=== PATIENT | female | born 1950 | race Caucasian/White ===

== ENCOUNTER 2020-05-02 22:20 | Emergency (ER) | payer SELFPAY ==
[2020-05-02] MEDS ORDERED: Ketorolac 30 MG/ML SDV IM ONE (22:33)
[2020-05-02] MEDS ORDERED: traMADol 50 MG Tab PO ONE (22:33)
--- NOTE | 2020-05-02 23:19 | EDM.PDOC ---
ED HPI GENERAL MEDICAL PROBLEM - General Chief Complaint: General Stated Complaint: PAIN IN R RIBS Time Seen by Provider: 05/02/20 22:25 Source of Information: Reports: Patient History Limitations: Reports: No Limitations - History of Present Illness INITIAL COMMENTS - FREE TEXT/NARRATIVE: Patient presented to the ED because of rt rib pain. It started 2 weeks ago when she was carrying and pulling furnitures. The pain is sharp 7/10 and is worse with movements. She OTC tylenol with mild relief. - Related Data Allergies Allergy/AdvReac Type Severity Reaction Status Date / Time No Known Allergies Allergy Verified 02/23/13 11:42 Home Meds: Home Meds Meloxicam 15 mg PO DAILY 02/17/15 [History] SUMAtriptan succinate [Imitrex] 100 mg PO DAILY PRN 02/17/15 [History] amLODIPine Besylate [Amlodipine Besylate] 10 mg PO DAILY 02/17/15 [History] traMADol [Ultram ER] 200 mg PO DAILY 02/17/15 [History] Cyclobenzaprine [Flexeril] 5 mg PO TID #15 tab 05/02/20 [Rx] Naproxen 500 mg PO BID #15 tablet 05/02/20 [Rx] traMADol [Ultram] 100 mg PO Q8H PRN #15 tab 05/02/20 [Rx] Past Medical History Cardiovascular History: Reports: Heart Murmur, High Cholesterol, Hypertension Other Musculoskeletal History: Chronic pain. Other Psychiatric History: Stress. - Past Surgical History Female Surgical History: Reports: Hysterectomy Musculoskeletal Surgical History: Reports: Knee Replacement, Other (See Below) Other Musculoskeletal Surgeries/Procedures:: States total left knee replacement. ED ROS GENERAL - Review of Systems Review Of Systems: See Below Constitutional: Reports: No Symptoms HEENT: Reports: No Symptoms Respiratory: Reports: No Symptoms Cardiovascular: Reports: No Symptoms Endocrine: Reports: No Symptoms GI/Abdominal: Reports: No Symptoms : Reports: No Symptoms Musculoskeletal: Reports: Other (rib pain) Skin: Reports: No Symptoms Neurological: Reports: No Symptoms Psychiatric: Reports: No Symptoms ED EXAM, GENERAL - Physical Exam Exam: See Below Exam Limited By: No Limitations General Appearance: Alert, No Apparent Distress Ears: Normal External Exam, Normal Canal Nose: Normal Inspection, Normal Mucosa, No Blood Throat/Mouth: Normal Inspection, Normal Lips, Normal Teeth Head: Atraumatic, Normocephalic Neck: Normal Inspection, Supple, Non-Tender Respiratory/Chest: No Respiratory Distress, Lungs Clear, Normal Breath Sounds, Other (tenderness rt rib and rt chest) Cardiovascular: Normal Peripheral Pulses, Regular Rate, Rhythm, No Edema GI/Abdominal: Normal Bowel Sounds, Soft, Non-Tender Back Exam: Normal Inspection, Full Range of Motion Extremities: Normal Inspection, Normal Range of Motion, Non-Tender Neurological: Alert, Oriented, CN II-XII Intact Course - Vital Signs Text/Narrative:: CXR and Rib xray was discussed with patient Toradol 30 mg IM Tramadol 100 mg PO x1 Last Recorded V/S: Last Vital Signs Temp 36.7 C 05/02/20 22:20 Pulse Resp BP Pulse Ox - Orders/Labs/Meds Orders: Active Orders 24 hr Category Date Time Status EKG Documentation Completion [RC] ASDIRECTED Care 05/02/20 22:39 Active Ribs 2V w Chest Rt [CR] Stat Exams 05/02/20 22:34 Taken EKG 12 Lead [EK] Routine Ther 05/02/20 22:39 Ordered Meds: Medications Discontinued Medications Generic Name Dose Route Start Last Admin Trade Name Freq PRN Reason Stop Dose Admin Ketorolac Tromethamine 30 mg 05/02/20 22:33 05/02/20 22:38 Toradol IM 05/02/20 22:34 30 mg ONETIME ONE Administration Tramadol HCl 100 mg 05/02/20 22:33 05/02/20 22:39 Ultram PO 05/02/20 22:34 100 mg ONETIME ONE Administration Departure - Departure Time of Disposition: 23:30 Disposition: Home, Self-Care 01 Condition: Good Clinical Impression: Rib pain on right side, Chest wall pain - Discharge Information Prescriptions: Cyclobenzaprine [Flexeril] 5 mg PO TID #15 tab Naproxen 500 mg PO BID #15 tablet traMADol [Ultram] 100 mg PO Q8H PRN #15 tab PRN Reason: Pain Referrals: Loretta Gray [employer] [Primary Care Provider] - Additional Instructions: please read discharge instructions on rib pain and chest wall pain take naproxen 500 mg twice daily for 7 days flexeril 5mg with tramadol 100 mg every 8 hours as needed for muscle spasm and pain Follow up as needed Sepsis Event Note (ED) - Evaluation Sepsis Screening Result: No Definite Risk - Focused Exam Vital Signs: Vital Signs Temp 05/02/20 22:20 36.7 C - My Orders Last 24 Hours: My Active Orders 05/02/20 22:34 Ribs 2V w Chest Rt [CR] Stat 05/02/20 22:39 EKG Documentation Completion [RC] ASDIRECTED EKG 12 Lead [EK] Routine - Assessment/Plan Last 24 Hours: My Active Orders 05/02/20 22:34 Ribs 2V w Chest Rt [CR] Stat 05/02/20 22:39 EKG Documentation Completion [RC] ASDIRECTED EKG 12 Lead [EK] Routine
[2020-05-03 01:58] VITALS: PULSE 89
[2020-05-03 01:59] VITALS: BP 166/83
--- NOTE | 2020-05-03 10:20 | CR ---
INDICATION: Right rib pain after moving furniture. RIGHT RIBS WITH CHEST: PA view of the chest with four images of the right ribs were obtained 05/02/20 - no comparisons. The heart appeared normal in size and shape. The aorta is tortuous with calcification in the arch. Overlying EKG leads are noted. No evidence of an active infiltrate, effusion, contusion, or pneumothorax was identified. 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 A BB is noted at the site of pain. No displaced rib fracture or other definite bony abnormality was identified. If occult fracture site is suspected clinically - if symptoms persist - reexamination in 10-14 days, nuclear bone imaging, or CT of the chest may be helpful for further evaluation. MTDD
== END 2020-05-02 23:55 | disposition home or self-care (01) ==
LOC: FB.ED 22:20
DX: R07.81 Pleurodynia (principal); R07.89 Other chest pain; I10 Essential (primary) hypertension; Z79.899 Other long term (current) drug therapy
CPT/HCPCS: 71101; 93005; 96372; 99283; A9270; J1885

== ENCOUNTER 2023-10-23 22:12 | Emergency (ER) | payer MEDICARE ==
[2023-10-23 22:54] LABS: BLOOD UREA NITROGEN,BUN 32 mg/dL (7-18); CALCIUM 9.8 mg/dL (8.6-10.2); CARBON DIOXIDE,CO2 26 mmol/L (21-32); CHLORIDE,CL 107 mmol/L (100-110); ESTIMATED GFR 60 mL/min (>60); GLUCOSE RANDOM 171 mg/dL (80-116); POTASSIUM,K 3.9 mmol/L (3.5-5.3); SODIUM,NA 140 mmol/L (135-145)
[2023-10-23] MEDS: Ketorolac 30 MG/ML SDV IM ONE (22:56)
[2023-10-23] MEDS: hydrOXYzine HCl 50 MG/ML SDV IM ONE (22:56)
[2023-10-23 22:59] LABS: A/G RATIO 0.9; ALANINE AMINOTRANSFERASE,ALT 17 U/L (12-36); ALBUMIN 3.4 g/dL (3.2-4.6); ALKALINE PHOSPHATASE 61 IU/L (56-112); ASPARTATE AMNIOTRANSFERASE,AST 13 IU/L (5-25); BILIRUBIN TOTAL 0.3 mg/dL (0.1-1.3)
[2023-10-23 23:00] LABS: BASOPHILS PERCENT AUTO 0.3 % (0.2-1.5); EOSINOPHILS ABSOLUTE AUTO 0.1 x10-3/uL (0.0-0.8); EOSINOPHILS PERCENT AUTO 1.1 % (0.6-8.1); HEMATOCRIT 40.9 % (34.2-48.2); HEMOGLOBIN 12.9 g/dL (11.4-15.5); LYMPHOCYTES ABSOLUTE AUTO 1.4 x10-3/uL (1.0-4.4); LYMPHOCYTES PERCENT AUTO 16.1 % (18.4-52.1); MEAN CORPUSCULAR HEMOGLOBIN 26.3 pg (23.9-33.9); MEAN CORPUSCULAR HGB CONC 31.6 g/dL (31.9-34.8); MEAN CORPUSCULAR VOLUME 83.1 fL (76.7-100.5); MEAN PLATELET VOLUME 8.1 fL (7.1-12.4); MONOCYTES ABSOLUTE AUTO 0.7 x10-3/uL (0.3-1.0); MONOCYTES PERCENT AUTO 8.5 % (4.4-15.7); NEUTROPHILS ABSOLUTE AUTO 6.3 x10-3/uL (1.5-6.3); PLATELET COUNT,PLT 286 x10(3)uL (151-488); RED BLOOD CELL COUNT 4.92 x10(6)uL (3.60-5.20); RED CELL DISTRIBUTION WIDTH 16.1 % (12.3-16.5); WHITE BLOOD CELL COUNT,WBC 8.5 x10-3/uL (3.0-10.3)
[2023-10-23 23:17] VITALS: BP 154/79; PULSE 97
== END 2023-10-24 | disposition home or self-care (01) ==
LOC: FB.ED 22:12
DX: R07.89 Other chest pain (principal); F41.9 Anxiety disorder, unspecified; I10 Essential (primary) hypertension; Z79.899 Other long term (current) drug therapy
CPT/HCPCS: 36415; 71045; 80053; 84484; 85025; 85379; 93005; 93010; 96372; 99283; 99285; J1885; J3410

== ENCOUNTER 2025-05-31 08:38 | Day surgery (SDC) | payer MEDICARE ==
[2025-05-31] MEDS ORDERED: Sodium Chloride 0.9% 10 ML Syringe IV ONE (08:39)
[2025-05-31] MEDS ORDERED: Midazolam 1 MG/ML 2 ML SDV IV ONE (08:39)
[2025-05-31] MEDS ORDERED: Ondansetron 4 MG/2 ML SDV IVPUSH ONE (08:39)
[2025-05-31] MEDS ORDERED: fentaNYL 100 MCG/2 ML SDV IV ONE (08:39)
[2025-05-31] MEDS ORDERED: Sodium Chloride 0.9% 10 ML Syringe FLUSH PRN (08:45)
[2025-05-31] MEDS ORDERED: Lactated Ringers 1,000 ML IV PRN (08:45)
[2025-05-31 10:38] VITALS: BP 134/57; PULSE 67
[2025-05-31] MEDS: acetaZOLAMIDE 500 MG Cap.ER PO ONE (11:13)
== END 2025-05-31 11:35 ==
LOC: FB.SDS 08:38
PROVIDERS: ATTEND Ophthalmology
DX: H25.812 Combined forms of age-related cataract, left eye (principal); I10 Essential (primary) hypertension; E78.5 Hyperlipidemia, unspecified; Z79.899 Other long term (current) drug therapy
CPT/HCPCS: 00142; 66984; 99100; A9270; J2250; J2405; J3010; V2632